=== PATIENT | female | born 2000 | race Hispanic/Latino ===

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

== ENCOUNTER 2020-03-21 21:16 | Emergency (ER) | payer MEDICAID, OTHER | END 2020-03-21 22:43 | disposition home or self-care (01) | LOC: EDH 21:16 | DX: J30.9 Allergic rhinitis, unspecified (principal) ==

== ENCOUNTER 2021-08-28 17:00 | Emergency (ER) | payer OTHER ==
[~2021-08-28] VITALS: Ht 162.6 cm; Wt 59.0 kg
[2021-08-28 17:20] VITALS: BP 113/55
[2021-08-28] MEDS ORDERED: HYDROXYZINE 25 MG TABLET PO ONE (17:30)
[2021-08-28] MEDS ORDERED: SOLU-MEDROL 125MG VIAL ONE (17:40)
[2021-08-28] MEDS ORDERED: LORATADINE 10 MG TABLET ONE (17:40)
[2021-08-28] MEDS ORDERED: METH4TAB3 PO (18:27)
[2021-08-28] MEDS ORDERED: LORATADINE 10 MG TABLET PO SCH (18:30)
[2021-08-28] MEDS ORDERED: SOLU-MEDROL 125MG VIAL IM ONE (18:30)
== END 2021-08-28 18:41 | disposition home or self-care (01) ==
LOC: EDH 17:00
DX: T78.49XA Other allergy, initial encounter (principal); Z79.52 Long term (current) use of systemic steroids; X58.XXXA Exposure to other specified factors, initial encounter
CPT/HCPCS: 96372; 99283; J2930

== ENCOUNTER 2023-03-23 17:21 | Emergency (ER) | payer MEDICAID, OTHER ==
[~2023-03-23] VITALS: Ht 160 cm; Wt 51.3 kg
[~2023-03-23 17:21] MED LIST: METH4TAB3 PO
[2023-03-23 17:47] LABS: HCG,QUALITATIVE URINE NEGATIVE (NEGATIVE)
[2023-03-23 17:49] LABS: ADD UA MICROSCOPIC YES; APPEARANCE,URINE CLOUDY (CLEAR); BILIRUBIN,URINE 1 mg/dL (NEGATIVE); COLOR,URINE DARK-YELLOW (YELLOW); GLUCOSE, URINE (UA) NEGATIVE (NEGATIVE); KETONES,URINE >=80 mg/dL (NEGATIVE); LEUKOCYTE ESTERASE ,URINE 500 Leu/uL (NEGATIVE); NITRATE,URINE 1+ (NEGATIVE); PROTEIN,URINE 100 mg/dL (NEGATIVE)
[2023-03-23 17:51] LABS: BACTERIA,URINE MOD /HPF (None Seen); MUCUS,URINE MANY LPF (None Seen); SQUAMOUS EPITHELIAL CELL,UR MANY /HPF (0-2); WBC,URINE TNTC /HPF (0-1)
[2023-03-23] MEDS ORDERED: FLUCONAZOLE 100 MG TAB PO ONE (18:00)
[2023-03-23] MEDS ORDERED: CEPH500B PO (18:03)
[2023-03-23 18:21] VITALS: BP 118/72; PULSE 74; RESP 16; O2SAT 98
== END 2023-03-23 18:22 | disposition home or self-care (01) ==
LOC: EDH 17:21
DX: N39.0 Urinary tract infection, site not specified (principal); B37.31 Acute candidiasis of vulva and vagina; Z79.899 Other long term (current) drug therapy; Z90.49 Acquired absence of other specified parts of digestive tract
CPT/HCPCS: 81001; 81025; 87088

== ENCOUNTER 2024-01-27 22:29 | Emergency (ER) | payer SELFPAY ==
[~2024-01-27] VITALS: Ht 157.5 cm; Wt 49.9 kg
[~2024-01-27 22:29] MED LIST changes: +CEPH500B PO
[2024-01-27 22:44] LABS: APPEARANCE,URINE CLEAR (CLEAR); BILIRUBIN,URINE NEGATIVE (NEGATIVE); COLOR,URINE YELLOW (YELLOW); GLUCOSE, URINE (UA) NEGATIVE (NEGATIVE); KETONES,URINE 5 mg/dL (NEGATIVE); LEUKOCYTE ESTERASE ,URINE NEGATIVE Leu/uL (NEGATIVE); NITRATE,URINE NEGATIVE (NEGATIVE); OCCULT BLOOD,URINE NEGATIVE (NEGATIVE); PROTEIN,URINE 20 mg/dL (NEGATIVE); UROBILINOGEN,URINE 3 mg/dL (0.2-1.0)
[2024-01-27 22:48] LABS: ADD UA MICROSCOPIC YES
[2024-01-27 22:49] LABS: HCG,QUALITATIVE URINE NEGATIVE (NEGATIVE)
[2024-01-27 22:50] LABS: MUCUS,URINE MOD LPF (None Seen); SQUAMOUS EPITHELIAL CELL,UR FEW /HPF (0-2)
[2024-01-27 22:52] LABS: BASOPHILS # (AUTO) 0.08 K/uL (0.00-0.20); BASOPHILS % (AUTO) 0.9 % (0.0-5.0); EOSINOPHILS # (AUTO) 0.27 K/uL (0.00-0.70); EOSINOPHILS % (AUTO) 2.9 % (0.0-8.0); HEMATOCRIT 40.8 % (36-48); IMMATURE GRANULOCYTE ABSOLUTE 0.04 K/uL (0-1); LYMPHOCYTES # (AUTO) 2.7 K/uL (1.0-4.8); LYMPHOCYTES % (AUTO) 28.7 % (21.0-51.0); MEAN CORPUSCULAR HEMOGLOBIN 29.8 pg (27.0-33.0); MEAN CORPUSCULAR HGB CONC 33.6 g/dL (32.0-36.0); MEAN CORPUSCULAR VOLUME 88.9 fL (79-99); MONOCYTES # (AUTO) 0.7 K/uL (0.1-1.0); MONOCYTES % (AUTO) 7.5 % (3.0-13.0); NEUTROPHILS # (AUTO) 5.5 K/uL (1.8-7.7); NEUTROPHILS % (AUTO) 59.6 % (40.0-77.0); PLATELET COUNT (AUTO) 331 K/uL (130-400); RED BLOOD CELL COUNT(AUTO) 4.59 MIL/uL (4.00-5.50); RED CELL DISTRIBUTION WIDTH 14.5 % (11.0-15.5); WHITE BLOOD COUNT (AUTO) 9.2 K/uL (4.8-10.8)
[2024-01-27 23:19] LABS: BILIRUBIN,TOTAL 0.5 mg/dL (0.2-1.0); MAGNESIUM 1.6 mg/dL (1.80-2.40); POTASSIUM 3.1 mmol/L (3.5-5.1); TOTAL PROTEIN, SERUM 7.9 g/dL (6.0-8.3)
[2024-01-27] MEDS: ONDANSETRON 4MG INJ IVP ONE (23:42)
[2024-01-27] MEDS: 0.9%NACL 1000ML 1,000 ML IV ONE (23:42)
[2024-01-27] MEDS: POTASSIUM BICARB/CIT AC 25 MEQ TABLET.EFF PO ONE (23:57)
[2024-01-27] MEDS: MAGNESIUM OXIDE 400 MG TABLET PO ONE (23:58)
[2024-01-28 00:05] LABS: COVID19 (SARS ANTIGEN RAPID) PRESUMPTIVE NEGATIVE (NEGATIVE)
[2024-01-28 00:06] LABS: INFLUENZA TYPE A Negative For Type A (NEGATIVE); INFLUENZA TYPE B Negative For Type B (NEGATIVE)
[2024-01-28 00:50] VITALS: BP 143/68; PULSE 68; RESP 18; O2SAT 100
== END 2024-01-28 01:01 | disposition home or self-care (01) ==
LOC: EDH 22:29
DX: R07.89 Other chest pain (principal); F41.9 Anxiety disorder, unspecified; E87.6 Hypokalemia; E83.42 Hypomagnesemia; Z90.49 Acquired absence of other specified parts of digestive tract; Z79.899 Other long term (current) drug therapy; Z20.822 Contact with and (suspected) exposure to COVID-19
CPT/HCPCS: 99285; 96374; 70450; 71045; 96361; 87426; 83735; 84484; 80053; 85025; 87804 ×2; 81001; 81025; 36415; 93005; J7030; J2405